=== PATIENT | female | born 1995 | race Caucasian/White ===

== ENCOUNTER 2021-06-08 23:43 | Emergency (ER) | payer OTHER ==
[2021-06-09 00:27] LABS: HEMOGLOBIN 14.2 gm/dl (12.3-15.3); RED BLOOD COUNT 4.5 M/UL (4.00-5.10); WHITE BLOOD COUNT 8.7 K/UL (4.5-11.0)
[2021-06-09 01:03] LABS: BUN/CREATININE RATIO 10 (0-10)
[2021-06-09] MEDS ORDERED: PYRIDIUM100 MG PO (04:53)
[2021-06-09] MEDS ORDERED: OMNICEF 300 MG300 MG PO (04:53)
[2021-06-09] MEDS ORDERED: ZOFRAN ODT 4 MG4 MG PO (04:53)
[2021-06-09] MEDS ORDERED: LODINE CAP 300300 MG PO (04:53)
== END 2021-06-09 05:10 | disposition home or self-care (01) ==
LOC: ER1 23:43
PROVIDERS: Emergency Medicine
DX: R10.811 Right upper quadrant abdominal tenderness (principal); R10.813 Right lower quadrant abdominal tenderness
CPT/HCPCS: 80053; 81001; 84703; 85025; 99284; Q9967

== ENCOUNTER 2021-09-22 18:03 | Emergency (ER) | payer OTHER ==
[~2021-09-22 18:03] MED LIST: LODINE CAP 300300 MG PO; OMNICEF 300 MG300 MG PO; PYRIDIUM100 MG PO; ZOFRAN ODT 4 MG4 MG PO
[2021-09-22 20:04] LABS: HEMOGLOBIN 13.7 gm/dl (12.3-15.3); RED BLOOD COUNT 4.41 M/UL (4.00-5.10); WHITE BLOOD COUNT 6.3 K/UL (4.5-11.0)
[2021-09-22 20:23] LABS: BUN/CREATININE RATIO 11 (0-10)
== END 2021-09-22 22:49 | disposition home or self-care (01) ==
LOC: ER1 18:03
PROVIDERS: Family Medicine
DX: K64.4 Residual hemorrhoidal skin tags (principal); K62.5 Hemorrhage of anus and rectum
CPT/HCPCS: 80053; 83690; 84703; 85025; 99284; Q9967